=== PATIENT | female | born 1975 | race Caucasian/White ===

== ENCOUNTER → 2023-02-18 15:39 | Outpatient (BNVA) | payer BC, MEDICAID, SELFPAY | PROVIDERS: PCP Nurse Practitioner; Visit Provider Nurse Practitioner | DX: F15.21 Other stimulant dependence, in remission (principal); I10 Essential (primary) hypertension; N91.2 Amenorrhea, unspecified | CPT/HCPCS: 80053; 80061; 80074; 81025; 82306; 83036; 84443; 85025; 87536 ==

== ENCOUNTER → 2023-02-19 18:39 | Outpatient (BNVA) | payer BC, MEDICAID, SELFPAY | PROVIDERS: PCP Nurse Practitioner; Visit Provider Nurse Practitioner | DX: F15.21 Other stimulant dependence, in remission (principal); I10 Essential (primary) hypertension; N91.2 Amenorrhea, unspecified | CPT/HCPCS: 87522 ==